=== PATIENT | female | born 1930 ===

== ENCOUNTER 2017-01-20 18:19 | Emergency (ER) | payer MEDICAID ==
[2017-01-20 18:27] VITALS: BMI 23.9
[2017-01-20 18:30] VITALS: BP 144/80; PULSE 94; RESP 18; TEMP 98
--- NOTE | 2017-01-20 20:03 | ED PDOC ---
Arrival/HPI - General Chief Complaint: Lower Extremity Problem/Injury Time Seen by Provider: 01/20/17 18:30 Historian: Patient - History of Present Illness Narrative History of Present Illness (Text): 01/20/17 19:36 86-year-old presents today with left foot and ankle pain status post fall 8 days ago. Patient states she developed some pain in her left knee which caused her to step incorrectly twisting the left ankle and falling on the ground. Patient has been ambulating on the left foot and ankle for the past 8 days. Patient's daughter was concerned because the patient was having swelling and ecchymosis to the foot and ankle. Patient has been taking Voltaren for pain without improvement. Patient denies numbness or tingling in the extremity. Denies hitting her head. Denies headache dizziness or weakness. No chest pain or shortness of breath. No other complaints Time/Duration: Other (8 days ago) Symptom Onset: Sudden Symptom Course: Unchanged Quality: Aching, Throbbing Severity Level: 6 Past Medical History - Provider Review Nursing Documentation Reviewed: Yes - Travel History Have you recently traveled outside [place] w/in the past 3 mons?: No - Infectious Disease Hx of Infectious Diseases: None - Tetanus Immunization Tetanus Immunization: Unknown - Cardiac Hx Hypertension: Yes - Musculoskeletal/Rheumatological Hx Arthritis: Yes - Psychiatric Hx Substance Use: No - Surgical History Hx Section: Yes (x1) - Anesthesia Hx Anesthesia: Yes Hx Anesthesia Reactions: No Hx Malignant Hyperthermia: No Family/Social History - Physician Review Nursing Documentation Reviewed: Yes Family/Social History: Unknown Family HX Smoking Status: Never Smoked Hx Alcohol Use: No Hx Substance Use: No Allergies/Home Meds Allergies/Adverse Reactions: Allergies No Known Allergies Allergy (Verified 01/20/17 18:27) Home Medications: Home Meds Medication Instructions Recorded Confirmed Diclofenac Sodium [Voltaren] 1 appl TOP DAILY 01/20/17 01/20/17 Home Med [Home Med] 1 tab PO DAILY 01/20/17 01/20/17 Solifenacin Succinate [Vesicare] 1 tab PO DAILY 01/20/17 01/20/17 Review of Systems - Review of Systems Constitutional: absent: Fatigue, Fevers Respiratory: absent: SOB, Cough Cardiovascular: absent: Chest Pain, Palpitations Gastrointestinal: absent: Abdominal Pain, Nausea, Vomiting Musculoskeletal: Arthralgias. absent: Back Pain, Neck Pain Skin: absent: Rash, Pruritis Neurological: absent: Headache, Dizziness Psychiatric: absent: Anxiety, Depression, Suicidal Ideation Physical Exam Vital Signs Reviewed: Yes Vital Signs Temp Pulse Resp BP Pulse Ox 01/20/17 18:30 98.0 F 94 H 18 144/80 97 Temperature: Afebrile Blood Pressure: Normal Pulse: Regular Respiratory Rate: Normal Appearance: Positive for: Well-Appearing, Non-Toxic, Comfortable Pain Distress: None Mental Status: Positive for: Alert and Oriented X 3 - Systems Exam Head: Present: Atraumatic Neck: Present: Normal Range of Motion. No: MIDLINE TENDERNESS, Paraspinal Tenderness Respiratory/Chest: Present: Clear to Auscultation Cardiovascular: Present: Regular Rate and Rhythm Back: No: Midline Tenderness, Paraspinal Tenderness Upper Extremity: Present: Normal ROM. No: Tenderness Lower Extremity: Present: NORMAL PULSES, Normal ROM, Tenderness (left foot; + ttp noted over plantar and dorsal aspect of foot; + ecchymosis noted to toes, + swelling to dorsal foot and ankle. + lateral malleolus tenderness; full rom of foot and ankle. sensation and distal pulses intact. cap refill <2. no calf tenderness. no proximal fibular tenderness; ), Swelling, Neurovascularly Intact , Capillary Refill < 2 s, Other (+ ecchymosis to ankle and foot. no lacerations. no erythema. no achilles tendon tenderness. ). No: CALF TENDERNESS , Erythema, Deformity, Temperature Abnormalties Neurological: Present: GCS=15, Speech Normal Skin: Present: Warm, Dry, Normal Color. No: Rashes Psychiatric: Present: Alert, Oriented x 3 Medical Decision Making ED Course and Treatment: 01/20/17 20:35 Patient nontoxic well-appearing in no distress with stable vital signs. c/o pain and swelling to left foot/ankle s/p injury 8 days ago. X-rays of the left ankle; no fracture xray of left foot; ? irregularity of base of 2-4th metatarsals; xray of left tib/fib; no fracture pt refused injection for pain. 25mg tramadol given PO Patient placed in short leg posterior splint. pt has walker at home. pt was advised to use walker. minimize ambulation on affected leg. case was discussed with dr. landrum; pt to call the office monday morning at 10am to schedule appointment for monday. I discussed all results in depth with the patient and her daughter advised to followup with the orthopedist/lure maker within the next 2 days. Advised return if symptoms worsen persist or new symptoms develop Patient verbalizes understanding of discharge instructions and need for immediate followup. all aspects of this case were discussed the attending of record. Impression: Ankle pain, foot pain, suspected fracture Rest, ice, compression, elevation Use walker for ambulation Followup with the orthopedist/lure maker within the next 2 days Followup with primary care physician within the next 2 days Return IMMEDIATELY if symptoms worsen persist or if new symptoms develop; increasing pain, numbness, calf pain, or if any other concerning symptoms develop. - RAD Interpretation Radiology Orders: 01/20/17 19:03 ANKLE LEFT 3 VIEWS ROUTINE [RAD] Stat FOOT LEFT 3 VIEWS ROUTINE [RAD] Stat TIBIA FIBULA LEFT [RAD] Stat - Medication Orders Current Medication Orders: Discontinued Medications Tramadol HCl (Ultram) 25 mg PO STAT STA Stop: 01/20/17 19:04 Last Admin: 01/20/17 19:31 Dose: 25 mg [facility] Pain Assessment Document 01/20/17 19:31 [email or web address] (Rec: 01/20/17 19:32 [email or web address] [id number]) Pain Reassessment Is this a pain reassessment? No Sleep Is patient sleeping during reassessment? No Presence of Pain Presence of Pain Yes Pain Scale Used Pain Scale Used Numeric Location Left, Right or Bilateral Left Pain Location Body Site Leg Description Description Constant Intensity of Pain at present 6 Pain Behavior Facial Grimacing Aggravating Factors Changing Position Alleviating Factors/Management Position Change Techniques Alleviating Factors Medication Procedures - Splinting Location: left ankle Hand-Made Type: fiberglass Splint: posterior short leg Pre-Proc Neuro Vasc Exam: normal Post-Proc Neuro Vasc Exam: normal Disposition/Present on Arrival - Present on Arrival Any Indicators Present on Arrival: No History of DVT/PE: No History of Uncontrolled Diabetes: No Urinary Catheter: No History of Decub. Ulcer: No History Surgical Site Infection Following: None - Disposition Have Diagnosis and Disposition been Completed?: Yes Diagnosis: Foot pain, Ankle pain Disposition: HOME/ ROUTINE Disposition Time: 20:39 Patient Plan: Discharge Condition: GOOD Discharge Instructions (ExitCare): SUSPECTED FRACTURE (ED), Arthralgia (ED) Additional Instructions: Rest, ice, compression, elevation Use walker for ambulation Followup with the orthopedist/lure maker within the next 2 days Followup with primary care physician within the next 2 days Return IMMEDIATELY if symptoms worsen persist or if new symptoms develop; increasing pain, numbness, calf pain, or if any other concerning symptoms develop. call dr. landrum's office at 10am monday morning to schedule appointment for monday. Referrals: Liang Landrum DO [Staff Provider] - Follow up with primary Davis Simpson DPM [Staff Provider] - Follow up with primary Clarita Mitchell DPM [Staff Provider] - Follow up with primary
[2017-01-20 21:00] VITALS: O2SAT 99
--- NOTE | 2017-01-21 09:16 | RAD ---
PROCEDURE: Left ankle radiographs Left foot radiographs Left tibia fibula radiographs HISTORY: fall, lateral ankle pain COMPARISON: None FINDINGS: BONES: Osseous demineralization. 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 Correlate with physical exam. If indicated, suggest further evaluation with cross-sectional imaging. JOINTS: No dislocation. Severe joint space narrowing particularly at the carpal metacarpal joint spaces. Severe tricompartmental joint space narrowing of the knee. SOFT TISSUES: Soft tissue swelling. No evidence of radiopaque foreign body. OTHER FINDINGS: None. 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 Correlate with physical exam. If indicated, suggest further evaluation with cross-sectional imaging. Study marked for PA review.
== END 2017-01-20 20:59 | disposition home or self-care (01) ==
LOC: ED 18:19
DX: M25.572 Pain in left ankle and joints of left foot (principal)